=== PATIENT | female | born 1995 | race Caucasian/White ===

== ENCOUNTER 2016-07-18 19:31 | Emergency (ER) | payer BC ==
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
--- NOTE | 2016-07-18 20:38 | XR ---
EXAMINATION TYPE: XR elbow complete RT DATE OF EXAM: 07/18/2016 8:33 PM COMPARISON: NONE HISTORY: Elbow pain TECHNIQUE: 3 views FINDINGS: I see no fracture nor dislocation. Joint spaces are normal. There is no sign of elbow joint effusion. IMPRESSION: Normal right elbow.
[2016-07-18 21:00] VITALS: BP 127/68; PULSE 81; RESP 16; TEMP 98.2
== END 2016-07-18 20:55 | disposition home or self-care (01) ==
LOC: EC 19:31
DX: S50.01XA Contusion of right elbow, initial encounter (principal); S30.0XXA Contusion of lower back and pelvis, initial encounter; S80.01XA Contusion of right knee, initial encounter; Z79.899 Other long term (current) drug therapy; V89.2XXA Person injured in unspecified motor-vehicle accident, traffic, initial encounter; Y93.29 Activity, other involving ice and snow
CPT/HCPCS: 72170; 99284